=== PATIENT | male | born 1960 | race Caucasian/White ===

== ENCOUNTER 2023-08-11 13:08 | Emergency (ER) | payer MEDICARE ==
[~2023-08-11] VITALS: Ht 182.9 cm; Wt 104.5 kg
[2023-08-11 13:08] VITALS: TEMP 98.6
[2023-08-11 16:03] VITALS: BP 123/78; PULSE 69
== END 2023-08-11 16:18 | disposition home or self-care (01) ==
LOC: COL.ER 13:08
DX: M54.2 Cervicalgia (principal); W03.XXXA Other fall on same level due to collision with another person, initial encounter; Y93.67 Activity, basketball; Y92.310 Basketball court as the place of occurrence of the external cause